=== PATIENT | female | born 1975 | race Caucasian/White ===

== ENCOUNTER 2017-04-20 12:34 | Emergency (ER) | payer MEDICAID ==
[~2017-04-20] VITALS: Ht 157.5 cm; Wt 80.0 kg
[~2017-04-20 12:34] MED LIST: HYDR-3533 PO
[2017-04-20 12:42] VITALS: BP 145/95; PULSE 101; RESP 16; TEMP 97.6; O2SAT 97
[2017-04-20] MEDS ORDERED: LISI10TA3 PO (12:46)
--- NOTE | 2017-04-20 13:52 | PD ---
HPI Chief Complaint: Skin Problem Time Seen by Provider: 13:51 Travel History International Travel<30 days: No Contact w/Intl Traveler<30days: No Traveled to known affect area: No History of Present Illness HPI 41-year-old female presents to the emergency room for evaluation of abscess to her right hand. Patient is an IV drug user and missed using 2 days ago. States she has had increasing pain and redness to the right dorsal hand. Denies paresthesias or loss of range of motion. Denies fever, chills, nausea, vomiting. PFSH Past Medical History Hx Anticoagulant Therapy: No Asthma: Yes Anxiety: Yes Heart Rhythm Problems: No Cancer: No Cardiovascular Problems: Yes (HTN) High Cholesterol: No Chemotherapy: No Chest Pain: No Congestive Heart Failure: No COPD: No Cerebrovascular Accident: No Diabetes: No Diminished Hearing: No Diverticulitis: Yes GERD: Yes Genitourinary: No Headaches: Yes Hypertension: Yes Musculoskeletal: Yes (CHRONIC BACK PAIN) Neurologic: No Reproductive: No Respiratory: No Immunizations Current: Yes Sleep Apnea: No Ulcer: Yes Influenza Vaccination: No ?: Not : 2 Para: 1 : 1 Past Surgical History Abdominal Surgery: No Cardiac Surgery: No Section: Yes Ear Surgery: No Endocrine Surgery: No Eye Surgery: No Genitourinary Surgery: No Gynecologic Surgery: Yes () Hysterectomy: No Oral Surgery: No Thoracic Surgery: No Other Surgery: Yes Social History Alcohol Use: Yes (SOCIALLY) Tobacco Use: Yes (1PPD) Substance Use: Yes (iv drug abuse/IV dilaudid 1/2) Allergies-Medications (Allergen,Severity, Reaction): Coded Allergies: Penicillin (Verified Allergy, Unknown, UNKNOWN, 04/20/17) *MDRO Multi-Drug Resistant Organism (Verified Adverse Reaction, Unknown, ) 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 Afebrile. Ambulatory. SKIN: Focused skin assessment warm/dry.SKIN: There is an indurated area in the [ -] which measures about [-] cm in diameter. It is fluctuant but there is no pointing or drainage. There is a zone of inflammation around it but no lymphangitis. HEAD: Normocephalic. EYES: No scleral icterus. No injection or drainage. NECK: Supple, trachea midline. No JVD or lymphadenopathy. CARDIOVASCULAR: Regular rate and rhythm without murmurs, gallops, or rubs. RESPIRATORY: Breath sounds equal bilaterally. No accessory muscle use. EXTREMITY: [*] hand Nontender. Full range of motion in all joints. No joint swelling/injury. Lumbrical and interossei function intact. Normal opposition of thumb. Distal extremity neurovascularly intact with intact two point discrimination. Data Data Last Documented VS Vital Signs Date Time Temp Pulse Resp B/P Pulse Ox O2 Delivery O2 Flow Rate FiO2 04/20/17 12:42 97.6 101 16 145/95 97 MDM Medical Decision Making Medical Screen Exam Complete: Yes Emergency Medical Condition: Yes Medical Record Reviewed: Yes Differential Diagnosis Abscess, cellulitis, IV drug use, cellulitis Narrative Course 41-year-old female presents to the emergency room for evaluation of abscess to her right dorsal hand. Patient tried to inject Dilaudid 2 days ago. Since then she has had increasing pain, redness, and swelling. Physical exam reveals abscess to the right dorsal hand. It is fluctuant. It was drained, see procedure for details. No systemic signs of infection. Patient discharged on clindamycin and told to follow up with a primary care physician or return for worsening symptoms. She understands and agrees to plan. Procedures Procedure Narrative INCISION AND DRAINAGE OF ABSCESS: The area was prepped and was sterilely draped. A subcutaneous wheal of 1% lidocaine with a total number 2 mL was used to anesthetize the area properly. A number 11 scalpel was used to make a 1 cm incision across the area of the abscess. The abscess was drained, complex loculations were broken down, and irrigated with normal saline. Cultures were obtained. Sterile dressing applied. Diagnosis Primary Impression: Abscess of right hand Referrals: Primary Care Physician Patient Instructions: Abscess (ED), General Instructions Additional Instructions: Rest and drink plenty of fluids. Take Bactrim as directed, until gone. Follow up with a primary care physician. Return to emergency room for worsening symptoms, as discussed. Med/Other Pt SpecificInfo: Prescription(s) given Scripts Clindamycin 300 Mg Oii216 Mg PO Q6H 10 Days Ref 0 Prov:Rashawn Avalos MD 04/20/17 Disposition: 01 DISCHARGE HOME Condition: Stable Sarahi Weiner Apr 20, 2017 13:52
[2017-04-20] MEDS ORDERED: CLIN1CAP6 PO (14:04)
== END 2017-04-20 14:12 | disposition home or self-care (01) ==
LOC: PHEFT 12:34
DX: L02.511 Cutaneous abscess of right hand (principal)
CPT/HCPCS: 10060

== ENCOUNTER 2017-08-06 17:02 | Emergency (ER) | payer MEDICAID ==
[~2017-08-06] VITALS: Ht 157.5 cm; Wt 78.4 kg
[~2017-08-06 17:02] MED LIST changes: +CLIN1CAP6 PO; -HYDR-3533 PO; +LISI10TA3 PO
[2017-08-06 17:05] VITALS: BP 151/88; PULSE 111; RESP 18; TEMP 98.4; O2SAT 100
[2017-08-06] MEDS ORDERED: CLIN1CAP5 PO (17:52)
--- NOTE | 2017-08-06 17:54 | PD ---
HPI . Abscess to the right hand Chief Complaint: Skin Problem Time Seen by Provider: 17:10 Travel History International Travel<30 days: No Contact w/Intl Traveler<30days: No Traveled to known affect area: No History of Present Illness HPI 41-year-old female presents to the emergency department for evaluation of abscesses right hand that she first noted yesterday. Patient states that this has happened before. Patient is an IV drug user. The abscess is approximately 2 cm x 2 cm area of fluctuation and erythema. There is cellulitic skin surrounding the abscess is indurated. There is a small area that is draining purulent fluid. The patient denies any fevers, chills, malaise, chest pain, shortness breath, abdominal pain, nausea, vomiting, diarrhea or lightheadedness. States the pain in the abscess is significant. The patient has full range of motion of the right hand despite the infectious process. The right hand is neurovascularly intact. PFSH Past Medical History Hx Anticoagulant Therapy: No Asthma: Yes Anxiety: Yes Heart Rhythm Problems: No Cancer: No Cardiovascular Problems: Yes (HTN) High Cholesterol: No Chemotherapy: No Chest Pain: No Congestive Heart Failure: No COPD: No Cerebrovascular Accident: No Diabetes: No Diminished Hearing: No Diverticulitis: Yes GERD: Yes Genitourinary: No Headaches: Yes Hypertension: Yes Musculoskeletal: Yes (CHRONIC BACK PAIN) Neurologic: No Reproductive: No Respiratory: Yes (asthma) Immunizations Current: Yes Sleep Apnea: No Ulcer: Yes Tetanus Vaccination: < 5 Years Influenza Vaccination: No ?: Not LMP: 1.5 week ago : 2 Para: 1 : 1 Past Surgical History Abdominal Surgery: No Cardiac Surgery: No Section: Yes Ear Surgery: No Endocrine Surgery: No Eye Surgery: No Genitourinary Surgery: No Gynecologic Surgery: Yes () Hysterectomy: No Oral Surgery: No Thoracic Surgery: No Other Surgery: Yes Social History Alcohol Use: Yes (SOCIALLY) Tobacco Use: Yes (1PPD) Substance Use: Yes (iv drug abuse/IV dilaudid 1/2) Allergies-Medications (Allergen,Severity, Reaction): Coded Allergies: penicillin G (Unverified Allergy, Unknown, UNKNOWN, 08/06/17) *MDRO Multi-Drug Resistant Organism (Verified Adverse Reaction, Unknown, 08/06/17) 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 Nontoxic-appearing. SKIN: 2 cm in 2 cm area of fluctuation with surrounding erythema noted to the right dorsal aspect laterally towards the thumb just inferior to the radial pulse. HEAD: Normocephalic. Atraumatic. NECK: Supple, trachea midline. No JVD or lymphadenopathy. CARDIOVASCULAR: Regular rate and rhythm without murmurs, gallops, or rubs. Radial pulse +2 bilaterally. RESPIRATORY: Breath sounds equal bilaterally. No accessory muscle use. GASTROINTESTINAL: Abdomen soft, non-tender, nondistended. MUSCULOSKELETAL: Right hand erythema and edema noted. Full range of motion in right hand. Cap refill within 3 seconds noted for all the digits in the right hand.. Data Data Last Documented VS Vital Signs Date Time Temp Pulse Resp B/P (MAP) Pulse Ox O2 Delivery O2 Flow Rate FiO2 08/06/17 17:05 98.4 111 18 151/88 (109) 100 Orders Orders Wound Culture And Gram Stain (08/06/17 17:39) MDM Medical Decision Making Medical Screen Exam Complete: Yes Emergency Medical Condition: Yes Differential Diagnosis Differential diagnoses include but not limited to abscess, cellulitis, skin infection, IV drug abuse, sepsis Narrative Course 41-year-old female presents emergency department for evaluation of an abscess to her right hand. There is an area of fluctuation surrounding erythema on the dorsal aspect of the right hand lateral to the thumb. Patient is an IV drug user. Only major medical history is hypertension and she takes lisinopril daily. Patient does have a history of MRSA from previous abscesses from IV drug abuse. There is a small area draining purulent drainage from the abscess. An I&D was performed to further open the abscess and drainage. Large amounts of purulent fluid drainage was noted after the I&D. Please see my procedural narrative for further details. The patient will be discharged home with antibiotics and instructions to return the emergency department in 3 days for wound recheck or sooner if signs or symptoms of worsening infection are noticed. Procedures Procedure Narrative INCISION AND DRAINAGE OF ABSCESS: The area was prepped and was sterilely draped. A subcutaneous wheal of 1 % Xylocaine with a total number 3 mL was used to anesthetize the area properly. A number #11 scalpel was used to make a 0.5-cm incision across the area of the abscess. The abscess was drained, complex loculations were broken down, and irrigated with normal saline. Cultures were obtained. Sterile dressing applied. Diagnosis Primary Impression: Abscess of right hand Referrals: Primary Care Physician Patient Instructions: Abscess (GEN), Abscess Follow-up (ED), Abscess Incision and Drainage (DC), General Instructions Additional Instructions: Please return to emergency department with any signs or symptoms of infection worsening such as increasing pain, redness, warmth and fevers. Return to the emergency department in 3 days for wound recheck. Follow up with your primary care provider. Keep wound clean and dry. Cease IV drug use.. Take medications as prescribed. Med/Other Pt SpecificInfo: Prescription(s) given Scripts Clindamycin (Clindamycin) 150 Mg Cap 450 MG PO TID for Infection for 10 Days, CAP 0 Refills Prov: Zahira Cannon 08/06/17 Disposition: 01 DISCHARGE HOME Condition: Stable Zahira Cannon Aug 06, 2017 17:54
== END 2017-08-06 18:04 | disposition home or self-care (01) ==
LOC: PHEFT 17:02
DX: J45.909 Unspecified asthma, uncomplicated (principal); F41.9 Anxiety disorder, unspecified; I10 Essential (primary) hypertension; K21.9 Gastro-esophageal reflux disease without esophagitis; B96.3 Hemophilus influenzae [H. influenzae] as the cause of diseases classified elsewhere; Z88.0 Allergy status to penicillin
CPT/HCPCS: 10060; 87070; 87077; 87184; 87186; 87205

== ENCOUNTER 2017-08-09 13:18 | Emergency (ER) | payer MEDICAID ==
[~2017-08-09] VITALS: Ht 157.5 cm; Wt 78.5 kg
[~2017-08-09 13:18] MED LIST changes: +CLIN150C14 PO; -CLIN1CAP6 PO; -LISI10TA3 PO
[2017-08-09 13:21] VITALS: BP 172/101; PULSE 105; RESP 16; TEMP 98.3; O2SAT 98
[2017-08-09] MEDS ORDERED: BACT800T5 PO (13:50)
--- NOTE | 2017-08-09 13:51 | PD ---
HPI Chief Complaint: Skin Problem Time Seen by Provider: 13:25 Travel History International Travel<30 days: No Contact w/Intl Traveler<30days: No Traveled to known affect area: No History of Present Illness HPI This 41-year-old female is here for recheck of an abscess drained 3 days ago. He has a history of IV drug abuse. She has developed some areas of redness on her arms. An I&D had been done on the . Culture grew Klebsiella. She was put on clindamycin. He has not had fever or chills. She has had some increased redness PFSH Past Medical History Hx Anticoagulant Therapy: No Asthma: Yes Anxiety: Yes Heart Rhythm Problems: No Cancer: No Cardiovascular Problems: Yes (HTN) High Cholesterol: No Chemotherapy: No Chest Pain: No Congestive Heart Failure: No COPD: No Cerebrovascular Accident: No Diabetes: No Diminished Hearing: No Diverticulitis: Yes GERD: Yes Genitourinary: No Headaches: Yes Hypertension: Yes Musculoskeletal: Yes (CHRONIC BACK PAIN) Neurologic: No Reproductive: No Respiratory: Yes (asthma) Immunizations Current: Yes Sleep Apnea: No Ulcer: Yes Tetanus Vaccination: < 5 Years Influenza Vaccination: No ?: Not : 2 Para: 1 : 1 Past Surgical History Abdominal Surgery: No Cardiac Surgery: No Section: Yes Ear Surgery: No Endocrine Surgery: No Eye Surgery: No Genitourinary Surgery: No Gynecologic Surgery: Yes () Hysterectomy: No Oral Surgery: No Thoracic Surgery: No Other Surgery: Yes Social History Alcohol Use: Yes (SOCIALLY) Tobacco Use: Yes (1PPD) Substance Use: Yes (iv drug abuse/IV dilaudid 1/2) Allergies-Medications (Allergen,Severity, Reaction): Coded Allergies: penicillin G (Unverified Allergy, Unknown, UNKNOWN, 08/09/17) *MDRO Multi-Drug Resistant Organism (Verified Adverse Reaction, Unknown, 08/09/17) 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 HEAD: Atraumatic. Normocephalic. EYES: Pupils equal and round. No scleral icterus. No injection or drainage. ENT: No nasal bleeding or discharge. Mucous membranes pink and moist. NECK: Trachea midline. No JVD. CARDIOVASCULAR: Regular rate and rhythm. No murmur appreciated. RESPIRATORY: No accessory muscle use. Clear to auscultation. Breath sounds equal bilaterally. GASTROINTESTINAL: Abdomen soft, non-tender, nondistended. Hepatic and splenic margins not palpable. MUSCULOSKELETAL: No obvious deformities. No clubbing. No cyanosis. No edema. The area of the I&D is not swollen. It is not draining at this time. There are couple areas that are slightly indurated and swollen. They don't feel fluctuant. The early areas of cellulitis NEUROLOGICAL: Awake and alert. No obvious cranial nerve deficits. Motor grossly within normal limits. Normal speech. PSYCHIATRIC: Appropriate mood and affect; insight and judgment normal. Data Data Last Documented VS Vital Signs Date Time Temp Pulse Resp B/P (MAP) Pulse Ox O2 Delivery O2 Flow Rate FiO2 08/09/17 13:21 98.3 105 16 172/101 (124) 98 MDM Medical Decision Making Medical Screen Exam Complete: Yes Emergency Medical Condition: Yes Medical Record Reviewed: Yes Differential Diagnosis Differential includes cellulitis, abscess, resolving abscess Narrative Course And then add Bactrim to her antibiotic regimen. She is stable for discharge Diagnosis Primary Impression: Abscess of right hand Scripts Sulfamethoxazole-Trimethoprim (Bactrim DS) 800-160 Mg Tab 1 TAB PO BID for Infection, #20 TAB 0 Refills Prov: Augie Louis MD 08/09/17 Disposition: 01 DISCHARGE HOME Condition: Stable Augie Louis MD Aug 09, 2017 13:51
[2017-08-10] MEDS ORDERED: TRAM50TA PO (19:14)
== END 2017-08-09 13:59 | disposition home or self-care (01) ==
LOC: PHED 13:18
DX: L02.511 Cutaneous abscess of right hand (principal); B96.1 Klebsiella pneumoniae [K. pneumoniae] as the cause of diseases classified elsewhere
CPT/HCPCS: 99281

== ENCOUNTER 2017-08-10 18:41 | Emergency (ER) | payer SELFPAY ==
[~2017-08-10] VITALS: Ht 157.5 cm; Wt 79.0 kg
[~2017-08-10 18:41] MED LIST changes: +BACT800T5 PO
[2017-08-10 18:47] VITALS: PULSE 102; RESP 16; TEMP 99; O2SAT 98
[2017-08-10] MEDS ORDERED: TRAM50TA PO (19:14)
--- NOTE | 2017-08-10 19:14 | PD ---
HPI Chief Complaint: Skin Problem Time Seen by Provider: 18:56 Travel History International Travel<30 days: No Contact w/Intl Traveler<30days: No Traveled to known affect area: No History of Present Illness HPI Patient is a 41-year-old female with history of IV drug abuse, returns to emergency room for evaluation of pain. Patient reports that she was treated for right hand abscess on August 06, 2017, reports at that time, she was started on clindamycin. She will return to the emergency yesterday for wound check, wounds were improving and healing. Cultures from abscess from July grew out positive for Klebsiella as well as for Haemophilus parainfluenza. Patient was started on Bactrim yesterday. Patient reports that she has been compliant with her medications, denies any fevers or chills. Reports that she is here for a script for pain medications as she cannot tolerate this pain. Patient is an IVDA, she does admit to still using IV drugs. Patient with no other complaints at this time PFSH Past Medical History Hx Anticoagulant Therapy: No Asthma: Yes Anxiety: Yes Heart Rhythm Problems: No Cancer: No Cardiovascular Problems: Yes (HTN) High Cholesterol: No Chemotherapy: No Chest Pain: No Congestive Heart Failure: No COPD: No Cerebrovascular Accident: No Diabetes: No Diminished Hearing: No Diverticulitis: Yes GERD: Yes Genitourinary: No Headaches: Yes Hypertension: Yes Musculoskeletal: Yes (CHRONIC BACK PAIN) Neurologic: No Reproductive: No Respiratory: Yes (asthma) Immunizations Current: Yes Sleep Apnea: No Ulcer: Yes ?: Not LMP: 2 WEEKS : 2 Para: 1 : 1 Past Surgical History Abdominal Surgery: No Cardiac Surgery: No Section: Yes Ear Surgery: No Endocrine Surgery: No Eye Surgery: No Genitourinary Surgery: No Gynecologic Surgery: Yes () Hysterectomy: No Oral Surgery: No Thoracic Surgery: No Other Surgery: Yes Social History Alcohol Use: Yes (SOCIALLY) Tobacco Use: Yes (1PPD) Substance Use: Yes (iv drug abuse/IV dilaudid /) Allergies-Medications (Allergen,Severity, Reaction): Coded Allergies: penicillin G (Unverified Allergy, Unknown, UNKNOWN, 08/10/17) *MDRO Multi-Drug Resistant Organism (Verified Adverse Reaction, Unknown, 08/09/17) 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 Reported Meds & Prescriptions Reported Meds & Active Scripts Active Bactrim DS (Sulfamethoxazole-Trimethoprim) 800-160 Mg Tab 1 Tab PO BID Clindamycin (Clindamycin HCl) 150 Mg Cap 450 Mg PO TID 10 Days Review of Systems General / Constitutional: No: Fever, Chills Eyes: No: Visual changes HENT: No: Headaches Cardiovascular: No: Chest Pain or Discomfort Respiratory: No: Shortness of Breath Gastrointestinal: No: Abdominal Pain Genitourinary: No: Dysuria Musculoskeletal: No: Pain Skin: No Rash Neurologic: No: Weakness Psychiatric: No: Depression Endocrine: No: Polydipsia Hematologic/Lymphatic: No: Easy Bruising Physical Exam Narrative GENERAL: NAD SKIN: Focused skin assessment warm/dry. Patient with abscess to b/l forearms with no streaking or discharge HEAD: Atraumatic. Normocephalic. EYES: No injection or drainage. ENT: No nasal bleeding or discharge. Mucous membranes pink and moist. NECK: Trachea midline. No JVD. CARDIOVASCULAR: Regular rate and rhythm. No murmur appreciated. RESPIRATORY: No accessory muscle use. Clear to auscultation. Breath sounds equal bilaterally. GASTROINTESTINAL: Abdomen soft, non-tender, nondistended. Hepatic and splenic margins not palpable. MUSCULOSKELETAL: No obvious deformities. No clubbing. No cyanosis. No edema. NEUROLOGICAL: Awake and alert. Motor grossly within normal limits. Normal speech. PSYCHIATRIC: Appropriate mood and affect; insight and judgment normal. Data Data Last Documented VS Vital Signs Date Time Temp Pulse Resp B/P (MAP) Pulse Ox O2 Delivery O2 Flow Rate FiO2 08/10/17 18:47 99.0 102 16 98 Orders Orders Tramadol-Acetamin 37.5-325 Mg (Ultracet (08/10/17 19:15) [facility] Medical Decision Making Medical Screen Exam Complete: Yes Emergency Medical Condition: Yes Medical Record Reviewed: Yes Interpretation(s) Vital Signs Date Time Temp Pulse Resp B/P (MAP) Pulse Ox O2 Delivery O2 Flow Rate FiO2 08/10/17 18:47 99.0 102 16 98 Differential Diagnosis IVDA, abscess, bacteremia Narrative Course 41-year-old female who presents to emergency room with complaints of abscess to her bilateral forearms and right hand. Patient reports no fevers or chills, reports that she has been taking her antibiotics as prescribed. Patient reports that she is only here for prescription for pain medications. Discussed obtaining IV and getting labs and possible admission- patient does not want labs or admission to the hospital at this time. She reports that abscesses are improving and is only here for pain medication script. Discussed need for her to return to ER in 48 hours for re-evaluation of her symptoms. Signs and symptoms of when to return to the ER was reviewed with patient in detail. Diagnosis Primary Impression: Abscess of right hand Additional Impression: Abscess of left arm Patient Instructions: General Instructions, Narcotic given in the ED Additional Instructions: Return to ER if symptoms worsen or progress or if you develop fever/chills Please take all antibiotics as prescribed Please follow up with your primary care doctor in 1-2 days Wound check in 48 hours Med/Other Pt SpecificInfo: Prescription(s) given Scripts Tramadol (Tramadol) 50 Mg Tab 50 MG PO Q6H Y for PAIN, #10 TAB 0 Refills Prov: Clementine Mcdonald DO 08/10/17 Disposition: 01 DISCHARGE HOME Condition: Stable Clementine Mcdonald DO Aug 10, 2017 19:14
[2017-08-10] MEDS ORDERED: traMADol/ACETAMINOPHEN 37.5/325 1 TAB PO ONE (19:15)
[2017-08-10 19:22] VITALS: BP 159/72; PULSE 84; RESP 16; O2SAT 96
[2017-08-10 20:14] VITALS: BP 153/76; RESP 16; TEMP 98
[2017-08-11] MEDS ORDERED: PROM25TA10 PO (08:34)
== END 2017-08-10 20:16 | disposition home or self-care (01) ==
LOC: PHED 18:41
DX: L02.511 Cutaneous abscess of right hand (principal); L02.414 Cutaneous abscess of left upper limb; B96.1 Klebsiella pneumoniae [K. pneumoniae] as the cause of diseases classified elsewhere; B96.3 Hemophilus influenzae [H. influenzae] as the cause of diseases classified elsewhere; I10 Essential (primary) hypertension; F17.200 Nicotine dependence, unspecified, uncomplicated; F19.10 Other psychoactive substance abuse, uncomplicated
CPT/HCPCS: 99283

== ENCOUNTER 2017-08-11 06:33 | Emergency (ER) | payer MEDICAID ==
[~2017-08-11] VITALS: Ht 157.5 cm; Wt 79.0 kg
[~2017-08-11 06:33] MED LIST changes: +TRAM50TA PO
[2017-08-11 06:47] VITALS: BP 186/101; PULSE 86; RESP 18; TEMP 98; O2SAT 100
[2017-08-11 06:55] VITALS: BP 186/101; PULSE 86; RESP 18; TEMP 98; O2SAT 100
[2017-08-11] MEDS ORDERED: SODIUM CHLOR 0.9% 1000 ML INJ 1,000 ML IV SCH (06:56)
[2017-08-11] MEDS ORDERED: ONDANSETRON HCL 4 MG/2 ML VIAL IVP ONE (07:00)
[2017-08-11] MEDS ORDERED: SODIUM CHLORIDE 0.9% FLUSH 10 ML FLUSH IV FLUSH PRN (07:00)
[2017-08-11] MEDS ORDERED: FAMOTIDINE 20 MG/2 ML VIAL IV PUSH ONE (07:00)
--- NOTE | 2017-08-11 07:01 | PD ---
HPI Chief Complaint: GI Complaint Time Seen by Provider: 06:50 Travel History International Travel<30 days: No Contact w/Intl Traveler<30days: No Traveled to known affect area: No History of Present Illness HPI The patient is a 41-year-old female who presents to the emergency department for nausea, vomiting, restless arms. The patient has a history of IV drug abuse and last used Dilaudid 2 days ago. The patient was seen in the emergency department yesterday for abscesses the upper extremities, had a 90 the right hand, was placed on antibiotics. The patient states she took the antibiotics and subsequently had nausea and vomiting. The patient is unsure if she is vomiting secondary to the antibiotics or is undergoing opiate withdrawal. The patient states initially the vomiting was clear, now has a small amount of visible blood, per the patient's report. She denies abdominal pain. She denies any chest pain, shortness of breath, or diarrhea. She denies any associated fever, but does note intermittent chills. Symptoms are moderate , possibly exacerbated by antibiotics or opiate withdrawal, and there are no current alleviating factors. PFSH Past Medical History Hx Anticoagulant Therapy: No Asthma: Yes Anxiety: Yes Heart Rhythm Problems: No Cancer: No Cardiovascular Problems: Yes (HTN) High Cholesterol: No Chemotherapy: No Chest Pain: No Congestive Heart Failure: No COPD: No Cerebrovascular Accident: No Diabetes: No Diminished Hearing: No Diverticulitis: Yes GERD: Yes Genitourinary: No Headaches: Yes Hypertension: Yes Musculoskeletal: Yes (CHRONIC BACK PAIN) Neurologic: No Reproductive: No Respiratory: Yes (asthma) Immunizations Current: Yes Sleep Apnea: No Ulcer: Yes : 2 Para: 1 : 1 Past Surgical History Abdominal Surgery: No Cardiac Surgery: No Section: Yes Ear Surgery: No Endocrine Surgery: No Eye Surgery: No Genitourinary Surgery: No Gynecologic Surgery: Yes () Hysterectomy: No Oral Surgery: No Thoracic Surgery: No Other Surgery: Yes Social History Alcohol Use: Yes (SOCIALLY) Tobacco Use: Yes (1PPD) Substance Use: Yes (iv drug abuse/IV dilaudid /) Allergies-Medications (Allergen,Severity, Reaction): Coded Allergies: penicillin G (Unverified Allergy, Unknown, UNKNOWN, 08/11/17) *MDRO Multi-Drug Resistant Organism (Verified Adverse Reaction, Unknown, 08/11/17) 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 Reported Meds & Prescriptions Reported Meds & Active Scripts Active Tramadol (Tramadol HCl) 50 Mg Tab 50 Mg PO Q6H PRN Bactrim DS (Sulfamethoxazole-Trimethoprim) 800-160 Mg Tab 1 Tab PO BID Clindamycin (Clindamycin HCl) 150 Mg Cap 450 Mg PO TID 10 Days Review of Systems Except as stated in HPI: all other systems reviewed are Neg General / Constitutional: No: Fever HENT: Positive: Lightheadedness Cardiovascular: No: Chest Pain or Discomfort Gastrointestinal: Positive: Nausea, Vomiting, Hematemesis, No: Diarrhea, Abdominal Pain Genitourinary: No: Dysuria Musculoskeletal: Positive: Other (restless upper extremity) Skin: Positive Other (abscesses to the upper extremities) Neurologic: No: Dizziness Psychiatric: Positive: Substance Abuse (IV Dilaudid abuse) Physical Exam Narrative GENERAL: Awake, alert, nontoxic-appearing 41 year-old female appears her stated age and is in no acute respiratory distress. SKIN: Focused skin assessment warm/dry. HEAD: Atraumatic. Normocephalic. EYES: Pupils equal and round. No scleral icterus. No injection or drainage. ENT: No nasal bleeding or discharge. Mildly dry mucous membranes. NECK: Trachea midline. No JVD. CARDIOVASCULAR: Regular rate and rhythm. No murmur appreciated. Heart rate in the 80s. RESPIRATORY: No accessory muscle use. Clear to auscultation. Breath sounds equal bilaterally. GASTROINTESTINAL: Abdomen soft, non-tender, nondistended. No rebound tenderness , guarding, rigidity. MUSCULOSKELETAL: No obvious deformities. No clubbing. No cyanosis. No edema. NEUROLOGICAL: Awake and alert. No obvious cranial nerve deficits. Motor grossly within normal limits. Normal speech. PSYCHIATRIC: Appropriate mood and affect; insight and judgment normal. Data Data Last Documented VS Vital Signs Date Time Temp Pulse Resp B/P (MAP) Pulse Ox O2 Delivery O2 Flow Rate FiO2 08/11/17 08:16 86 16 158/86 (110) 99 Room Air 08/11/17 06:55 98.0 Orders Orders Complete Blood Count With Diff (08/11/17 06:56) Comprehensive Metabolic Panel (08/11/17 06:56) Lipase (08/11/17 06:56) Lactic Acid (08/11/17 06:56) Urinalysis - C+S If Indicated (08/11/17 06:56) Iv Access Insert/Monitor (08/11/17 06:56) Ecg Monitoring (08/11/17 06:56) Oximetry (08/11/17 06:56) Ondansetron Inj (Zofran Inj) (08/11/17 07:00) Sodium Chlor 0.9% 1000 Ml Inj (Ns 1000 M (08/11/17 06:56) Sodium Chloride 0.9% Flush (Ns Flush) (08/11/17 07:00) Famotidine Inj (Pepcid Inj) (08/11/17 07:00) Diphenhydramine Inj (Benadryl Inj) (08/11/17 07:45) Tramadol-Acetamin 37.5-325 Mg (Ultracet (08/11/17 08:00) Clonidine (Catapres) (08/11/17 08:00) Labs Laboratory Tests Test 08/11/17 07:20 White Blood Count 14.1 TH/MM3 Red Blood Count 4.21 MIL/MM3 Hemoglobin 11.2 GM/DL Hematocrit 33.3 % Mean Corpuscular Volume 79.1 FL Mean Corpuscular Hemoglobin 26.6 PG Mean Corpuscular Hemoglobin Concent 33.7 % Red Cell Distribution Width 14.8 % Platelet Count 345 TH/MM3 Mean Platelet Volume 7.7 FL Neutrophils (%) (Auto) 80.3 % Lymphocytes (%) (Auto) 11.4 % Monocytes (%) (Auto) 6.2 % Eosinophils (%) (Auto) 1.1 % Basophils (%) (Auto) 1.0 % Neutrophils # (Auto) 11.3 TH/MM3 Lymphocytes # (Auto) 1.6 TH/MM3 Monocytes # (Auto) 0.9 TH/MM3 Eosinophils # (Auto) 0.2 TH/MM3 Basophils # (Auto) 0.1 TH/MM3 CBC Comment DIFF FINAL Differential Comment Blood Urea Nitrogen 11 MG/DL Creatinine 0.68 MG/DL Random Glucose 127 MG/DL Total Protein 7.5 GM/DL Albumin 2.9 GM/DL Calcium Level 8.7 MG/DL Alkaline Phosphatase 109 U/L Aspartate Amino Transf (AST/SGOT) 14 U/L Alanine Aminotransferase (ALT/SGPT) 24 U/L Total Bilirubin 0.4 MG/DL Sodium Level 138 MEQ/L Potassium Level 3.5 MEQ/L Chloride Level 104 MEQ/L Carbon Dioxide Level 23.5 MEQ/L Anion Gap 11 MEQ/L Estimat Glomerular Filtration Rate 94 ML/MIN Lactic Acid Level 1.3 mmol/L Lipase 116 U/L [facility] Medical Decision Making Medical Screen Exam Complete: Yes Emergency Medical Condition: Yes Medical Record Reviewed: Yes Interpretation(s) Laboratory Tests Test 08/11/17 07:20 White Blood Count 14.1 TH/MM3 Red Blood Count 4.21 MIL/MM3 Hemoglobin 11.2 GM/DL Hematocrit 33.3 % Mean Corpuscular Volume 79.1 FL Mean Corpuscular Hemoglobin 26.6 PG Mean Corpuscular Hemoglobin Concent 33.7 % Red Cell Distribution Width 14.8 % Platelet Count 345 TH/MM3 Mean Platelet Volume 7.7 FL Neutrophils (%) (Auto) 80.3 % Lymphocytes (%) (Auto) 11.4 % Monocytes (%) (Auto) 6.2 % Eosinophils (%) (Auto) 1.1 % Basophils (%) (Auto) 1.0 % Neutrophils # (Auto) 11.3 TH/MM3 Lymphocytes # (Auto) 1.6 TH/MM3 Monocytes # (Auto) 0.9 TH/MM3 Eosinophils # (Auto) 0.2 TH/MM3 Basophils # (Auto) 0.1 TH/MM3 CBC Comment DIFF FINAL Differential Comment Blood Urea Nitrogen 11 MG/DL Creatinine 0.68 MG/DL Random Glucose 127 MG/DL Total Protein 7.5 GM/DL Albumin 2.9 GM/DL Calcium Level 8.7 MG/DL Alkaline Phosphatase 109 U/L Aspartate Amino Transf (AST/SGOT) 14 U/L Alanine Aminotransferase (ALT/SGPT) 24 U/L Total Bilirubin 0.4 MG/DL Sodium Level 138 MEQ/L Potassium Level 3.5 MEQ/L Chloride Level 104 MEQ/L Carbon Dioxide Level 23.5 MEQ/L Anion Gap 11 MEQ/L Estimat Glomerular Filtration Rate 94 ML/MIN Lactic Acid Level 1.3 mmol/L Lipase 116 U/L Differential Diagnosis Differential diagnosis includes medication side effect, opiate withdrawal, gastritis, peptic ulcer disease, esophageal varices, pancreatitis, electrolyte abnormality, dehydration, sepsis. Narrative Course IV was established, labs are drawn and sent, and the patient was placed on cardiac telemetry monitoring and continuous pulse oximetry monitoring. The patient was administered Zofran, Pepcid, and IV fluids. White count is mildly elevated at 14.1, hemoglobin is stable. The patient had no further vomiting, there is no evidence of hematemesis in the emergency department. The patient was administered tramadol and clonidine for her opiate withdrawal. She will be discharged home on Phenergan and is advised to follow-up at [facility]. Return if symptoms worsen or progress. Diagnosis Primary Impression: Opiate withdrawal Additional Impression: Gastritis Qualified Codes: K29.00 - Acute gastritis without bleeding Patient Instructions: General Instructions Additional Instructions: Medications as directed. Follow-up with her primary physician. Follow-up at [facility]. Work excuse for 3 days. Continue medications as previously directed. Med/Other Pt SpecificInfo: Prescription(s) given Scripts Promethazine (Phenergan) 25 Mg Tablet 25 MG PO Q6H Y for NAUSEA OR VOMITING, #20 TAB 0 Refills Prov: Forrest Hernandez MD 08/11/17 Disposition: 01 DISCHARGE HOME Condition: Stable Forrest Hernandez MD Aug 11, 2017 07:01
[2017-08-11 07:20] VITALS: BP 186/101; RESP 18; O2SAT 100
[2017-08-11 07:31] LABS: AUTOMATED NEUTROPHIL # 11.3 TH/MM3 (1.8-7.7); BASOPHIL # 0.1 TH/MM3 (0-0.2); EOSINOPHIL # 0.2 TH/MM3 (0-0.4); EOSINOPHIL % 1.1 % (0.0-4.0); HEMATOCRIT 33.3 % (35.0-46.0); LYMPH % 11.4 % (9.0-44.0); LYMPHOCYTE # 1.6 TH/MM3 (1.0-4.8); MEAN CELL VOLUME 79.1 FL (80.0-100.0); MEAN CORPUSCULAR HEMOGLOBIN 26.6 PG (27.0-34.0); MEAN CORPUSCULAR HGB CONC 33.7 % (32.0-36.0); MONO % 6.2 % (0.0-8.0); NEUT % 80.3 % (16.0-70.0); PLATELET COUNT 345 TH/MM3 (150-450); RED BLOOD COUNT 4.21 MIL/MM3 (4.00-5.30); RED CELL DISTRIBUTION WIDTH 14.8 % (11.6-17.2); WHITE BLOOD COUNT 14.1 TH/MM3 (4.0-11.0)
[2017-08-11 07:36] LABS: CHLORIDE 104 MEQ/L (98-107); POTASSIUM 3.5 MEQ/L (3.5-5.1); SODIUM (NA) 138 MEQ/L (136-145)
[2017-08-11 07:38] LABS: HEMO FLAGS DIFF FINAL
[2017-08-11 07:40] LABS: ANION GAP 11 MEQ/L (5-15); BICARBONATE 23.5 MEQ/L (21.0-32.0); BLOOD UREA NITROGEN 11 MG/DL (7-18)
[2017-08-11 07:43] LABS: ALT (GPT) 24 U/L (10-53); AST (GOT) 14 U/L (15-37); GLOMERULAR FILTRATION RATE 94 ML/MIN (>89)
[2017-08-11 07:45] LABS: TOTAL BILIRUBIN ADULT 0.4 MG/DL (0.2-1.0)
[2017-08-11] MEDS ORDERED: diphenhydrAMINE HCL 50 MG/ML VIAL IV PUSH ONE (07:45)
[2017-08-11 07:46] LABS: ALKALINE PHOSPHATASE 109 U/L (45-117)
[2017-08-11] MEDS ORDERED: traMADol/ACETAMINOPHEN 37.5/325 1 TAB PO ONE (08:00)
[2017-08-11] MEDS ORDERED: cloNIDine HCL 0.1 MG TAB PO ONE (08:00)
[2017-08-11 08:16] VITALS: BP 158/86; PULSE 86; RESP 16; O2SAT 99
[2017-08-11] MEDS ORDERED: PROM25TA10 PO (08:34)
[2017-08-11] MEDS ORDERED: PROCHLORPERAZINE INJ 10 MG/2 ML VIAL IV PUSH ONE (08:45)
[2017-08-11 09:09] VITALS: RESP 16
[2017-08-11 09:19] VITALS: BP 168/75
[2017-08-12] MEDS ORDERED: LISI10TA3 PO (16:07)
[2017-08-12] MEDS ORDERED: DOXY100C PO (17:23)
[2017-08-12] MEDS ORDERED: BACT800T5 PO (17:27)
== END 2017-08-11 09:19 | disposition home or self-care (01) ==
LOC: PHED 06:33
DX: F11.23 Opioid dependence with withdrawal (principal); K29.00 Acute gastritis without bleeding; F17.200 Nicotine dependence, unspecified, uncomplicated
CPT/HCPCS: 80053; 83605; 83690; 85025; 96361; 96374; 96375; 99284; J0780; J1200; J2405; J7030

== ENCOUNTER 2017-08-12 15:18 | Emergency (ER) | payer MEDICAID ==
[~2017-08-12] VITALS: Ht 157.5 cm; Wt 78.0 kg
[~2017-08-12 15:18] MED LIST changes: +PROM25TA10 PO
[2017-08-12 15:31] VITALS: BP 137/82; PULSE 112; RESP 18; TEMP 98.5; O2SAT 97
[2017-08-12] MEDS ORDERED: LISI10TA3 PO (16:07)
[2017-08-12] MEDS ORDERED: LIDOCAINE HCL 1% 50 ML VIAL INFIL ONE (16:30)
--- NOTE | 2017-08-12 16:52 | PD ---
HPI Chief Complaint: Skin Problem Time Seen by Provider: 16:14 Travel History International Travel<30 days: No Contact w/Intl Traveler<30days: No Traveled to known affect area: No History of Present Illness HPI PT STATES ON CLINDA AND BACTRIM FOR FOREARM ABSCESS, PATIENT IS IVDA, KNOWN MRSA. LEFT FOREARM IS GETTING LARGER AND MORE PAINFUL AND HAS NOT DRAINED AT ALL LIKE THE ONE ON RIGHT. NO ALLEVIATING/AGGRAVATING FACTORS....DENIES FEVER/N /V/D/COUGH/CP/ABDPAIN AT THIS TIME PFSH Past Medical History Hx Anticoagulant Therapy: No Asthma: Yes Anxiety: Yes Heart Rhythm Problems: No Cancer: No Cardiovascular Problems: Yes (HTN) High Cholesterol: No Chemotherapy: No Chest Pain: No Congestive Heart Failure: No COPD: No Cerebrovascular Accident: No Diabetes: No Diminished Hearing: No Diverticulitis: Yes GERD: Yes Genitourinary: No Headaches: Yes Hypertension: Yes Musculoskeletal: Yes (CHRONIC BACK PAIN) Neurologic: No Reproductive: No Respiratory: Yes (asthma) Immunizations Current: Yes Sleep Apnea: No Ulcer: Yes ?: Not : 2 Para: 1 : 1 Past Surgical History Abdominal Surgery: No Cardiac Surgery: No Section: Yes Ear Surgery: No Endocrine Surgery: No Eye Surgery: No Genitourinary Surgery: No Gynecologic Surgery: Yes () Hysterectomy: No Oral Surgery: No Thoracic Surgery: No Other Surgery: Yes Social History Alcohol Use: Yes (SOCIALLY) Tobacco Use: Yes (1PPD) Substance Use: Yes (iv drug abuse/IV dilaudid 1/2) Allergies-Medications (Allergen,Severity, Reaction): Coded Allergies: penicillin G (Unverified Allergy, Unknown, UNKNOWN, 08/12/17) *MDRO Multi-Drug Resistant Organism (Verified Adverse Reaction, Unknown, 08/12/17) 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 Reported Meds & Prescriptions Reported Meds & Active Scripts Active Bactrim DS (Sulfamethoxazole-Trimethoprim) 800-160 Mg Tab 1 Tab PO BID Doxycycline Hyclate 100 Mg Cap 100 Mg PO BID Phenergan (Promethazine HCl) 25 Mg Tablet 25 Mg PO Q6H PRN Tramadol (Tramadol HCl) 50 Mg Tab 50 Mg PO Q6H PRN Bactrim DS (Sulfamethoxazole-Trimethoprim) 800-160 Mg Tab 1 Tab PO BID Clindamycin (Clindamycin HCl) 150 Mg Cap 450 Mg PO TID 10 Days Reported Lisinopril 10 Mg Tab 10 Mg PO DAILY Review of Systems Except as stated in HPI: all other systems reviewed are Neg General / Constitutional: No: Fever Eyes: No: Visual changes HENT: No: Headaches Cardiovascular: No: Chest Pain or Discomfort Respiratory: No: Shortness of Breath Gastrointestinal: No: Abdominal Pain Genitourinary: No: Dysuria Musculoskeletal: No: Pain Skin: Positive Lumps Neurologic: No: Weakness Psychiatric: No: Depression Endocrine: No: Polydipsia Hematologic/Lymphatic: No: Easy Bruising Physical Exam Narrative GENERAL: SKIN: Warm and dry. RIGHT FOREARM IS A QUARER SIZE RESOLVING ABSCESS SPONTANEOUSLY DRAINING. LEFT FOREARM HAS 7CM DIAMETER ABSCESS SOME FLUCTUANCE, AND SORROUNDING CELLULITIS HEAD: Atraumatic. Normocephalic. EYES: Pupils equal and round. No scleral icterus. No injection or drainage. ENT: No nasal bleeding or discharge. Mucous membranes pink and moist. NECK: Trachea midline. No JVD. CARDIOVASCULAR: Regular rate and rhythm. RESPIRATORY: No accessory muscle use. Clear to auscultation. Breath sounds equal bilaterally. GASTROINTESTINAL: Abdomen soft, non-tender, nondistended. MUSCULOSKELETAL: Extremities without clubbing, cyanosis, or edema. No obvious deformities. NEUROLOGICAL: Awake and alert. No obvious cranial nerve deficits. Motor grossly within normal limits. Five out of 5 muscle strength in the arms and legs. Normal speech. PSYCHIATRIC: Appropriate mood and affect; insight and judgment normal. Exam Front Extremities 1 - Abscess (RESOLVING ABSCESS QUARTER SIZE, NO SORROUNDING CELLULITIS, SPONT DRAINING) 2 - Abscess (7CM DIAMETER ABSCESS, WITH SORROUNDING CELLULITIS, NO STREAKING, NO LAD, ) Data Data Last Documented VS Vital Signs Date Time Temp Pulse Resp B/P (MAP) Pulse Ox O2 Delivery O2 Flow Rate FiO2 08/12/17 15:31 98.5 112 18 137/82 (100) 97 Orders Orders Lidocaine 1% Inj (50 Ml) (Xylocaine 1% I (08/12/17 16:30) Ed Discharge Order (08/12/17 17:45) MDM Medical Decision Making Medical Screen Exam Complete: Yes Emergency Medical Condition: Yes Medical Record Reviewed: Yes Differential Diagnosis cellulitis v abscess v lymphangitis Narrative Course patient's exam revealed a resolving abscess on right ue, lue however did show 7cm fluctuant but not spont draining so I&D PERFORMED Procedures Procedure Narrative SKIN: There is an indurated area in the [LEFT WRIST TOTAL AREA OF 7CM] BUT FLUCTUANT AREA which measures about [5] cm in diameter. It is fluctuant but there is no pointing or drainage. There is a zone of inflammation around it but no lymphangitis. AREA PREPPED IN NL STERILE FASHION, LIDOCAINE 1% USED TO LOCALLY ANESTHESIZED 5CM AREA, T SHAPED INCISION MADE, COPIOUS AMOUNT OF PURULENCE RELEASED, CAVITY IRRIGATED AND PACKED WITH IODOFORM GAUZE. THE SMALLER AREA 2CM WAS INCISED BUT NO PURULENCE RELEASED. Diagnosis Primary Impression: ABSCESS LEFT ARM S/P I&D Scripts Sulfamethoxazole-Trimethoprim (Bactrim DS) 800-160 Mg Tab 1 TAB PO BID for Infection, #14 TAB 0 Refills Prov: Rashawn Avalos MD 08/12/17 Doxycycline Hyclate (Doxycycline Hyclate) 100 Mg Cap 100 MG PO BID for Infection, #20 CAP 0 Refills Prov: Rashawn Avalos MD 08/12/17 Disposition: 01 DISCHARGE HOME Condition: Stable Rashawn Avalos MD Aug 12, 2017 16:52
[2017-08-12] MEDS ORDERED: DOXY100C PO (17:23)
[2017-08-12] MEDS ORDERED: BACT800T5 PO (17:27)
== END 2017-08-12 17:48 | disposition home or self-care (01) ==
LOC: PHED 15:18
DX: L02.414 Cutaneous abscess of left upper limb (principal)
CPT/HCPCS: 10061

== ENCOUNTER 2017-08-14 22:41 | Emergency (ER) | payer MEDICAID ==
[~2017-08-14] VITALS: Ht 157.5 cm; Wt 75.0 kg
[~2017-08-14 22:41] MED LIST changes: +DOXY100C PO; +LISI10TA3 PO
[2017-08-14 22:53] VITALS: BP 146/81; PULSE 94; RESP 18; TEMP 99; O2SAT 99
[2017-08-14 23:10] VITALS: RESP 18; O2SAT 99
--- NOTE | 2017-08-14 23:12 | PD ---
HPI Chief Complaint: Cardiac Complaint Time Seen by Provider: 23:03 Travel History International Travel<30 days: No Contact w/Intl Traveler<30days: No Traveled to known affect area: No History of Present Illness HPI 41 year-old female presents to the emergency department by private transportation for evaluation of chest pain since 10 PM associated with shortness of breath and feeling anxious. Patient states she's been under the care of the emergency department for management of an abscess and has been having left forearm pain associated with the abscess. Patient thinks she had a panic attack. Patient does have history of hypertension and does smoke cigarettes with family history of CAD and her grandfather. Patient denies diabetes or dyslipidemia. Presently patient has 0/10 chest pain. PFSH Past Medical History Hx Anticoagulant Therapy: No Asthma: Yes Anxiety: Yes Heart Rhythm Problems: No Cancer: No Cardiovascular Problems: Yes (HTN) High Cholesterol: No Chemotherapy: No Chest Pain: No Congestive Heart Failure: No COPD: No Cerebrovascular Accident: No Diabetes: No Diminished Hearing: No Diverticulitis: Yes GERD: Yes Genitourinary: No Headaches: Yes Hypertension: Yes Musculoskeletal: Yes (CHRONIC BACK PAIN) Neurologic: No Reproductive: No Respiratory: Yes (asthma) Immunizations Current: Yes Sleep Apnea: No Ulcer: Yes ?: Unknown : 2 Para: 1 : 1 Past Surgical History Abdominal Surgery: No Cardiac Surgery: No Section: Yes Ear Surgery: No Endocrine Surgery: No Eye Surgery: No Genitourinary Surgery: No Gynecologic Surgery: Yes () Hysterectomy: No Oral Surgery: No Thoracic Surgery: No Other Surgery: Yes Social History Alcohol Use: Yes (SOCIALLY) Tobacco Use: Yes (1PPD) Substance Use: Yes (iv drug abuse/IV dilaudid 1/2) Allergies-Medications (Allergen,Severity, Reaction): Coded Allergies: penicillin G (Unverified Allergy, Unknown, UNKNOWN, 08/14/17) *MDRO Multi-Drug Resistant Organism (Verified Adverse Reaction, Unknown, 08/14/17) 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 Reported Meds & Prescriptions Reported Meds & Active Scripts Active Bactrim DS (Sulfamethoxazole-Trimethoprim) 800-160 Mg Tab 1 Tab PO BID Doxycycline Hyclate 100 Mg Cap 100 Mg PO BID Reported Lisinopril 10 Mg Tab 10 Mg PO DAILY Review of Systems Except as stated in HPI: all other systems reviewed are Neg General / Constitutional: No: Fever, Chills HENT: No: Congestion, Neck Pain Cardiovascular: No: Chest Pain or Discomfort (prior to arrival), Palpitations, Diaphoresis Respiratory: No: Shortness of Breath (prior to arrival) Gastrointestinal: No: Nausea, Vomiting Genitourinary: No: Flank Pain Musculoskeletal: No: Myalgias, Arthralgias Skin: Positive Other (healing L FA abscess s/p I&D) Neurologic: No: Weakness Psychiatric: Positive: Anxiety Hematologic/Lymphatic: No: Lymph Node Enlargement Physical Exam Narrative GENERAL: Well-developed well-nourished female in no acute distress no respiratory distress; no stridor or hoarseness SKIN: Warm and dry. No urticaria. HEAD: Normocephalic. EYES: No scleral icterus. No injection or drainage. ENT: Mucous members moist airway is patent no angioedema NECK: Supple, trachea midline. No JVD or lymphadenopathy. CARDIOVASCULAR: Regular rate and rhythm without murmurs, gallops, or rubs. RESPIRATORY: Breath sounds equal bilaterally. No accessory muscle use. GASTROINTESTINAL: Abdomen soft, non-tender, nondistended. MUSCULOSKELETAL: No cyanosis, or edema. Pulses 2+ and equal bilateral upper extremities and lower extremities. BACK: Nontender without obvious deformity. No CVA tenderness. Data Data Last Documented VS Vital Signs Date Time Temp Pulse Resp B/P (MAP) Pulse Ox O2 Delivery O2 Flow Rate FiO2 08/14/17 23:10 18 99 Room Air 08/14/17 22:53 99.0 94 146/81 (102) Orders Orders Electrocardiogram (08/14/17 23:03) Basic Metabolic Panel (Bmp) (08/14/17 23:03) Ckmb (Isoenzyme) Profile (08/14/17 23:03) Complete Blood Count With Diff (08/14/17 23:03) Magnesium (Mg) (08/14/17 23:03) Prothrombin Time / Inr (Pt) (08/14/17 23:03) Act Partial Throm Time (Ptt) (08/14/17 23:03) Troponin I (08/14/17 23:03) Chest, Single Ap (08/14/17 23:03) Ecg Monitoring (08/14/17 23:03) Bilateral Bp Monitoring (08/14/17 23:03) Iv Access Insert/Monitor (08/14/17 23:03) Oximetry (08/14/17 23:03) Oxygen Administration (08/14/17 23:03) Aspirin Chew (Aspirin Chew) (08/14/17 23:15) Sodium Chloride 0.9% Flush (Ns Flush) (08/14/17 23:15) Potassium Chloride (Kcl) (08/14/17 23:45) Ketorolac Inj (Toradol Inj) (08/15/17 00:15) Ed Discharge Order (08/15/17 00:56) Labs Laboratory Tests Test 08/14/17 23:13 White Blood Count 9.7 TH/MM3 Red Blood Count 4.68 MIL/MM3 Hemoglobin 12.3 GM/DL Hematocrit 36.8 % Mean Corpuscular Volume 78.7 FL Mean Corpuscular Hemoglobin 26.3 PG Mean Corpuscular Hemoglobin Concent 33.3 % Red Cell Distribution Width 15.1 % Platelet Count 510 TH/MM3 Mean Platelet Volume 7.6 FL Neutrophils (%) (Auto) 69.2 % Lymphocytes (%) (Auto) 23.8 % Monocytes (%) (Auto) 4.4 % Eosinophils (%) (Auto) 2.2 % Basophils (%) (Auto) 0.4 % Neutrophils # (Auto) 6.8 TH/MM3 Lymphocytes # (Auto) 2.3 TH/MM3 Monocytes # (Auto) 0.4 TH/MM3 Eosinophils # (Auto) 0.2 TH/MM3 Basophils # (Auto) 0.0 TH/MM3 CBC Comment DIFF FINAL Differential Comment Prothrombin Time 9.9 SEC Prothromb Time International Ratio 0.9 RATIO Activated Partial Thromboplast Time 32.3 SEC Blood Urea Nitrogen 13 MG/DL Creatinine 0.99 MG/DL Random Glucose 120 MG/DL Calcium Level 8.9 MG/DL Magnesium Level 2.2 MG/DL Sodium Level 133 MEQ/L Potassium Level 3.1 MEQ/L Chloride Level 98 MEQ/L Carbon Dioxide Level 25.6 MEQ/L Anion Gap 9 MEQ/L Estimat Glomerular Filtration Rate 61 ML/MIN Total Creatine Kinase 32 U/L Troponin I LESS THAN 0.02 NG/ML MDM Medical Decision Making Medical Screen Exam Complete: Yes Emergency Medical Condition: Yes Medical Record Reviewed: Yes Interpretation(s) EKG: Normal sinus rhythm rate [address] elevation injury pattern or ectopy noted nonspecific artifact present at baseline Last Impressions Chest X-Ray 08/14/17 4824 Signed Impressions: Service Date/Time: Monday, August 14, 2017 23:11 - CONCLUSION: 1. No acute cardiopulmonary disease. Ace Montalvo MD CBC & BMP Diagram 08/14/17 23:13 Calcium Level 8.9, Magnesium Level 2.2 Vital Signs Date Time Temp Pulse Resp B/P (MAP) Pulse Ox O2 Delivery O2 Flow Rate FiO2 08/14/17 23:10 18 99 Room Air 08/14/17 23:10 99 Room Air 08/14/17 23:05 Room Air 08/14/17 22:53 99.0 94 18 146/81 (102) 99 Troponin I: Less than 0.02, not elevated Differential Diagnosis Chest pain palpitations anxiety ACS [place] PE; also to consider allergic reaction Narrative Course Patient placed on bus driver/monitor IV access obtained specimens collected and sent for resulting EKG performed sinus rhythm with rate of [address] elevation injury pattern or ectopy noted; patient informed of EKG results and immediately states symptoms have resolved. Lab work collected and sent for resulting along with chest x-ray ordered. Patient does have history of hypertension and does smoke cigarettes and given aspirin 162 mg by mouth Patient's pain is 0/10 intensity no nitroglycerin administered. Patient states she is having pain at this time where she has recently had an abscess I&D and would like something for her post I&D incision site pain and administer Toradol 30 mg IV Lab values are found to be in normal range except for hypokalemia patient given oral potassium replacement for potassium of 3.1; patient informed pain has resolved after Toradol. Cardiac enzymes are found to be in normal range. Patient feels well has been pacing around the room and is desirous of being discharged home and states she'll follow up with her primary care provider. Patient is encouraged to discontinue tobacco use. Diagnosis Primary Impression: Atypical chest pain Referrals: Primary Care Physician 2 days Patient Instructions: General Instructions Additional Instructions: Increase fluid hydration Continue chronic medications as chronically prescribed including blood pressure medication Complete course of antibiotic as prescribed Take acetaminophen or ibuprofen per package instructions as needed for fever 100.4F or greater or pain associated with inflammation Recommend discontinuing tobacco use Follow-up with your primary care provider call office to schedule follow-up appointment Return to the emergency for free concerns or change in condition Med/Other Pt SpecificInfo: No Change to Meds Disposition: 01 DISCHARGE HOME Condition: Stable Cat Abreu MD Aug 14, 2017 23:12
[2017-08-14] MEDS ORDERED: ASPIRIN 81 MG CHEW TAB PO ONE (23:15)
[2017-08-14] MEDS ORDERED: SODIUM CHLORIDE 0.9% FLUSH 10 ML FLUSH IVF PRN (23:15)
[2017-08-14 23:19] LABS: AUTOMATED NEUTROPHIL # 6.8 TH/MM3 (1.8-7.7); BASOPHIL % 0.4 % (0.0-2.0); EOSINOPHIL # 0.2 TH/MM3 (0-0.4); EOSINOPHIL % 2.2 % (0.0-4.0); HEMATOCRIT 36.8 % (35.0-46.0); LYMPH % 23.8 % (9.0-44.0); LYMPHOCYTE # 2.3 TH/MM3 (1.0-4.8); MEAN CELL VOLUME 78.7 FL (80.0-100.0); MEAN CORPUSCULAR HEMOGLOBIN 26.3 PG (27.0-34.0); MEAN CORPUSCULAR HGB CONC 33.3 % (32.0-36.0); MONO % 4.4 % (0.0-8.0); NEUT % 69.2 % (16.0-70.0); PLATELET COUNT 510 TH/MM3 (150-450); RED BLOOD COUNT 4.68 MIL/MM3 (4.00-5.30); RED CELL DISTRIBUTION WIDTH 15.1 % (11.6-17.2); WHITE BLOOD COUNT 9.7 TH/MM3 (4.0-11.0)
[2017-08-14 23:20] LABS: HEMO FLAGS DIFF FINAL
[2017-08-14 23:26] LABS: CHLORIDE 98 MEQ/L (98-107); POTASSIUM 3.1 MEQ/L (3.5-5.1); SODIUM (NA) 133 MEQ/L (136-145)
[2017-08-14 23:29] LABS: ANION GAP 9 MEQ/L (5-15); BICARBONATE 25.6 MEQ/L (21.0-32.0); MAGNESIUM 2.2 MG/DL (1.5-2.5)
[2017-08-14 23:30] LABS: BLOOD UREA NITROGEN 13 MG/DL (7-18)
[2017-08-14 23:32] LABS: APTT (PATIENT) 32.3 SEC (24.3-30.1); INTERNATIONAL NORMALIZED RATIO 0.9 RATIO; PROTHROMBIN TIME - PATIENT 9.9 SEC (9.8-11.6)
[2017-08-14 23:33] LABS: GLOMERULAR FILTRATION RATE 61 ML/MIN (>89)
--- NOTE | 2017-08-14 23:42 | RADRPT ---
EXAM DATE/TIME: 08/14/2017 23:11 [facility] COMPARISON: CHEST SINGLE AP, October 30, 2014, 19:00. INDICATIONS : Chest pain. MEDICAL HISTORY : Hypertension. Asthma. SURGICAL HISTORY : None. ENCOUNTER: Initial ACUITY: 1 day PAIN SCORE: 5/10 LOCATION: chest substernal. FINDINGS: A single view of the chest demonstrates the lungs to be symmetrically aerated without evidence of mas s, infiltrate or effusion. The cardiomediastinal contours are unremarkable. Osseous structures are intact. CONCLUSION: 1. No acute cardiopulmonary disease. Ace Montalvo MD on August 14, 2017 at 23:40 Board Certified Radiologist. This report was verified electronically.
[2017-08-14] MEDS ORDERED: POTASSIUM CHLORIDE 20 MEQ CONTROLLED RELEASE TAB PO ONE (23:45)
[2017-08-14 23:52] LABS: CREATINE KINASE 32 U/L (26-192)
[2017-08-15] MEDS ORDERED: KETOROLAC TROMETHAMINE 30 MG/ML (IVP) VIAL IV PUSH ONE (00:15)
[2017-08-15 01:07] VITALS: BP 133/66; PULSE 87; RESP 16; O2SAT 96
[2017-08-15 01:09] VITALS: RESP 16
--- NOTE | 2017-08-15 08:22 | EKG ---
Date Performed: 08/14/2017 Time Performed: 22:49:47 PTAGE: 41 years EKG: Sinus rhythm NORMAL ECG NO PREVIOUS TRACING DOCTOR: Michael Sequeira Interpretating Date/Time 08/15/2017 08:22:34
== END 2017-08-15 01:12 | disposition home or self-care (01) ==
LOC: PHED 22:41
DX: R07.89 Other chest pain (principal); E87.6 Hypokalemia; R06.02 Shortness of breath; M79.632 Pain in left forearm; I10 Essential (primary) hypertension; F17.200 Nicotine dependence, unspecified, uncomplicated; Z87.09 Personal history of other diseases of the respiratory system; Z86.59 Personal history of other mental and behavioral disorders; Z86.79 Personal history of other diseases of the circulatory system; Z87.19 Personal history of other diseases of the digestive system; Z87.39 Personal history of other diseases of the musculoskeletal system and connective tissue; Z82.49 Family history of ischemic heart disease and other diseases of the circulatory system
CPT/HCPCS: 71010; 80048; 82550; 83735; 84484; 85025; 85610; 85730; 93005; 96374; 99285; J1885

== ENCOUNTER 2017-10-10 06:55 | Emergency (ER) | payer MEDICAID ==
[~2017-10-10] VITALS: Ht 157.5 cm; Wt 77.0 kg
[~2017-10-10 06:55] MED LIST changes: -CLIN150C14 PO; -PROM25TA10 PO; -TRAM50TA PO
[2017-10-10 06:59] VITALS: BP 144/101; PULSE 97; RESP 16; TEMP 98; O2SAT 97
--- NOTE | 2017-10-10 07:06 | PD ---
HPI Chief Complaint: Anxiety Time Seen by Provider: 07:06 Travel History International Travel<30 days: No Contact w/Intl Traveler<30days: No Traveled to known affect area: No History of Present Illness HPI 31-year-old female came to the emergency room with anxiety that started last night she says. Patient says that this is because of opiate withdrawal. Patient says she was on oxycodone 15 mg twice a day for 2 weeks. She stopped taking it 2 days ago since she ran out of it and she is positive this is what's causing her symptoms. 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 She had relapsed 3 months ago and was doing IV Dilaudid. She stopped doing that by the end of July and says she has been clean until she was on the prescribed medications. No history of chest pain. She just sits feels that her heart is racing and cannot sit still. She denies doing any drugs. She says she smokes marijuana. She had one glass of alcohol last night. Vital signs were relatively stable. [facility] Past Medical History Narrative Medical List of her past medical, surgical, social and family history is reviewed from the nursing note. Hx Anticoagulant Therapy: No Asthma: Yes Anxiety: Yes Heart Rhythm Problems: No Cancer: No Cardiovascular Problems: Yes (HTN) High Cholesterol: No Chemotherapy: No Chest Pain: No Congestive Heart Failure: No COPD: No Cerebrovascular Accident: No Diabetes: No Diminished Hearing: No Diverticulitis: Yes GERD: Yes Genitourinary: No Headaches: Yes Hypertension: Yes Musculoskeletal: Yes (CHRONIC BACK PAIN) Neurologic: No Reproductive: No Respiratory: Yes (ASTHMA) Immunizations Current: Yes Sleep Apnea: No Ulcer: Yes ?: Not : 2 Para: 1 : 1 Past Surgical History Abdominal Surgery: No Cardiac Surgery: No Section: Yes Ear Surgery: No Endocrine Surgery: No Eye Surgery: No Genitourinary Surgery: No Gynecologic Surgery: Yes () Hysterectomy: No Oral Surgery: No Thoracic Surgery: No Other Surgery: Yes (MULTIPLE I&D PROCEDURES) Social History Alcohol Use: Yes (SOCIALLY) Tobacco Use: Yes (1PPD) Substance Use: Yes (iv drug abuse/IV dilaudid 1/2) Allergies-Medications (Allergen,Severity, Reaction): Coded Allergies: penicillin G (Unverified Allergy, Unknown, UNKNOWN, 10/10/17) *MDRO Multi-Drug Resistant Organism (Verified Adverse Reaction, Unknown, ) 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 Comments List of her allergies reviewed from the nursing note. Reported Meds & Prescriptions Reported Meds & Active Scripts Active Reported Lisinopril 10 Mg Tab 10 Mg PO DAILY Narrative Medication List of her home medications reviewed from the nurse's note. Review of Systems Except as stated in HPI: all other systems reviewed are Neg Psychiatric: Positive: Anxiety Physical Exam Narrative GENERAL: Awake, alert, anxious, unable to sit still SKIN: Focused skin assessment warm/dry. HEAD: Atraumatic. Normocephalic. EYES: Pupils equal and round. No scleral icterus. No injection or drainage. ENT: No nasal bleeding or discharge. Mucous membranes pink and moist. NECK: Trachea midline. No JVD. CARDIOVASCULAR: Regular rate and rhythm. No murmur appreciated. RESPIRATORY: No accessory muscle use. Clear to auscultation. Breath sounds equal bilaterally. GASTROINTESTINAL: Abdomen soft, non-tender, nondistended. Hepatic and splenic margins not palpable. MUSCULOSKELETAL: No obvious deformities. No clubbing. No cyanosis. No edema. NEUROLOGICAL: Awake and alert. No obvious cranial nerve deficits. Motor grossly within normal limits. Normal speech. PSYCHIATRIC: Appropriate mood and affect; insight and judgment normal. Data Data Last Documented VS Orders Orders Clonidine (Catapres) (10/10/17 07:15) Hydroxyzine Hcl (Atarax) (10/10/17 07:15) Ondansetron Odt (Zofran Odt) (10/10/17 07:15) Electrocardiogram (10/10/17 ) Drug Screen, Random Urine (10/10/17 08:16) Alprazolam (Xanax) (10/10/17 08:30) Ed Discharge Order (10/10/17 09:59) Labs Laboratory Tests Test 10/10/17 08:50 Urine Opiates Screen POS Urine Barbiturates Screen NEG Urine Amphetamines Screen NEG Urine Benzodiazepines Screen NEG Urine Cocaine Screen NEG Urine Cannabinoids Screen POS MDM Medical Decision Making Medical Screen Exam Complete: Yes Emergency Medical Condition: Yes Medical Record Reviewed: Yes Interpretation(s) Twelve-lead EKG was reviewed by me. Normal sinus rhythm, normal axis, nonspecific ST-T wave changes. Heart rate of 85 bpm. Differential Diagnosis Panic attack, substance withdrawal, substance induced anxiety Narrative Course 9:04 AM patient was given by mouth clonidine and by mouth Atarax for possible opiate withdrawal. However patient says that she does not think it's working. I ordered a urine drug screen which is pending and gave her 0.5 mg of Xanax. I will go back and reassess her in a bit. 9:57 AM I went to reassess the patient and she was fast asleep. She was snoring. I've to wake her up and when she woke up she said that she dozes off and then when she wakes up she is again jittery. I let her know that it does not make sense that her being on opiates for 2 weeks would cause such a bad withdrawal. In any case uncomfortable discharging her home. I recommended her to go to [facility] for any further detox assistance. Procedures EKG Prior to Arrival: No Diagnosis Primary Impression: Opiate withdrawal Referrals: Primary Care Physician Additional Instructions: Please go to [facility] for further assistance with detox. You should not do any opiates and future. For the time being stay away from marijuana or alcohol till symptoms get better. Med/Other Pt SpecificInfo: No Change to Meds Disposition: 01 DISCHARGE HOME Condition: Stable Eric Ca MD Oct 10, 2017 07:06
[2017-10-10] MEDS ORDERED: ONDANSETRON ODT 4 MG TAB PO ONE (07:15)
[2017-10-10] MEDS ORDERED: hydrOXYzine HCL 50 MG TAB PO ONE (07:15)
[2017-10-10] MEDS ORDERED: cloNIDine HCL 0.1 MG TAB PO ONE (07:15)
[2017-10-10 08:12] VITALS: BP 125/69
[2017-10-10] MEDS ORDERED: ALPRAZolam 0.5 MG TAB PO ONE (08:30)
--- NOTE | 2017-10-10 11:22 | EKG ---
Date Performed: 10/10/2017 Time Performed: 08:25:31 PTAGE: 41 years EKG: Sinus rhythm NORMAL ECG No significant change from prior electrocardiogram. PREVIOUS TRACING : 08/14/2017 22.49 DOCTOR: Darren Macario Interpretating Date/Time 10/10/2017 11:21:46
== END 2017-10-10 10:11 | disposition home or self-care (01) ==
LOC: PHED 06:55
DX: F11.23 Opioid dependence with withdrawal (principal); T40.2X5A Adverse effect of other opioids, initial encounter; R00.0 Tachycardia, unspecified; I10 Essential (primary) hypertension; F17.200 Nicotine dependence, unspecified, uncomplicated; Z79.899 Other long term (current) drug therapy; Z87.09 Personal history of other diseases of the respiratory system; Z87.19 Personal history of other diseases of the digestive system; Z87.39 Personal history of other diseases of the musculoskeletal system and connective tissue
CPT/HCPCS: 80307; 93005